=== PATIENT | female | born 1995 | race Caucasian/White ===

== ENCOUNTER 2016-12-26 08:18 | Emergency (ER) | payer OTHER ==
[2016-12-26 08:35] VITALS: BP 102/78
--- NOTE | 2016-12-26 08:35 | UC ---
Throat Pain/Nasal Robb HPI - HPI Summary HPI Summary: this started with a head cold last week about 5 days ago and has progressed to sore throat. No known fevers. - History of Current Complaint Stated Complaint: SORE THROAT Time Seen by Provider: 12/26/16 08:24 Hx Obtained From: Patient Hx Last Menstrual Period: 12/27/13 ?: No Onset/Duration: Gradual Onset, Lasting Days Severity: Moderate Cough: None Associated Signs & Symptoms: Positive: Dysphagia, Nasal Discharge, Other - she is losing her voice.. Negative: Fever, Vomiting, Rash - Epiglottits Risk Factors Epiglottis Risk Factors: Negative - Allergies/Home Medications Allergies/Adverse Reactions: Allergies Allergy/AdvReac Type Severity Reaction Status Date / Time No Known Allergies Allergy Verified 03/12/16 20:55 PMH/Surg Hx/FS Hx/Imm Hx Previously Healthy: No Respiratory History: Asthma - Surgical History Surgical History: None - Family History Known Family History: Positive: None - Social History Occupation: Student Alcohol Use: Weekly Substance Use Type: None Smoking Status (MU): Never Smoked Tobacco Review of Systems ENT: Sore Throat All Other Systems Reviewed And Are Negative: Yes Physical Exam Triage Information Reviewed: Yes Appearance: Well-Appearing, No Pain Distress, Well-Nourished Vital Signs Reviewed: Yes Eye Exam: Normal ENT: Positive: Pharyngeal erythema, Nasal congestion, TMs normal, Muffled/ hoarse voice. Negative: Tonsillar swelling, Tonsillar exudate, Trismus Neck exam: Normal Neck: Positive: Supple, Nontender, No Lymphadenopathy Respiratory Exam: Normal Cardiovascular Exam: Normal Abdominal Exam: Normal Musculoskeletal Exam: Normal Neurological Exam: Normal Psychological Exam: Normal Skin Exam: Normal Throat Pain/Nasal Course/Dx - Differential Dx/Diagnosis Differential Diagnosis/HQI/PQRI: Laryngitis, Jeferson's Angina, Otitis Media, Pharyngitis, Tonsillitis, URI Provider Diagnoses: pharyngitis. laryngitis Discharge - Discharge Plan Condition: Good Disposition: HOME Patient Education Materials: Upper Respiratory Infection (ED) Referrals: Non Staff,Doctor [Primary Care Provider] - Additional Instructions: return here for any worsening.
== END 2016-12-26 08:46 | disposition home or self-care (01) ==
LOC: UCCORT 08:18
DX: J02.9 Acute pharyngitis, unspecified (principal); J04.0 Acute laryngitis
CPT/HCPCS: 99211; G0463